=== PATIENT | female | born 1945 | race Caucasian/White ===

== ENCOUNTER 2016-09-05 20:27 | Emergency (ER) | payer MEDICARE, OTHER ==
[~2016-09-05] VITALS: Ht 170.2 cm; Wt 86.4 kg
[~2016-09-05 20:27] MED LIST: CALC-460 PO; CHOL10008 PO; OMEP20TA86 PO
[2016-09-05 20:32] VITALS: BP 140/93; PULSE 82; RESP 16; O2SAT 98
== END 2016-09-05 22:07 | disposition left against medical advice (07) ==
LOC: SED 20:27
DX: Z53.21 Procedure and treatment not carried out due to patient leaving prior to being seen by health care provider (principal)